=== PATIENT | male | born 1980 | race Caucasian/White ===

== ENCOUNTER 2017-07-06 05:57 | Day surgery (SDC) | payer OTHER ==
[2017-07-06] VITALS (13 sets, daily range): BP systolic 126–152; BP diastolic 73–96; PULSE 60–98; RESP 10–20; O2SAT 95–99
[~2017-07-06] VITALS: Ht 198.1 cm; Wt 151.2 kg
[~2017-07-06 05:57] MED LIST: Lactated Ringer's 1,000 ML IV ONE
[2017-07-06] MEDS ORDERED: Phenylephrine/NS 100 mCg/mL 10 mL Syringe IVPUSH ONE (05:58)
[2017-07-06] MEDS ORDERED: Propofol 10,000 mCg/mL 20 mL Inj ONE (05:58)
[2017-07-06] MEDS ORDERED: Ondansetron 2 mg/mL 2 mL Inj ONE (05:58)
[2017-07-06] MEDS ORDERED: Succinylcholine Chloride 20 mg/mL 5 mL Inj ONE (05:58)
[2017-07-06] MEDS ORDERED: fentaNYL-PF 50 mCg/mL 2 mL Inj ONE (05:58)
[2017-07-06] MEDS: Dexamethasone Inj 20 MG in Dextrose 5%-Pha MIX 50 ML IV SCH ×2 (06:50→06:55)
--- NOTE | 2017-07-06 07:19 | PCM.HPANE ---
Patient Data Date of Service: Jul 06, 2017 Surgeon Admitting Provider: Attending Provider:Marcos Yap MD Primary Care Physician:Logan Cowan MD Other Provider:Ela Huggins Anesthesia Reason for Visit Hypertrophy Of Nasal Turbinates, Chronic Sinisitis HYPERTROPHY OF NASAL TURBINATES, CHRONIC SINISITIS Ht/WT & BMI Height (Feet): 6 Height (Inches): 2 Weight (Kilograms): 152.00 Body Mass Index 43.00 Allergies Coded Allergies: hydrocodone (Verified Allergy, Unknown, nausea/vomiting, 06/29/17) Past Anesthesia History Anesthesia History: Denies:: Abnormal Airway, Anesthesia Reactions, Difficult Intubation, Fam Anesthesia Reaction (mother once woke during procedure) Diabetes History Hx Diabetes?: No Type of Diabetes: Diet Controlled MRSA MRSA: No Medications Home Meds Incl Beta Isidra: No No Active Prescriptions or Reported Meds History History of ENT Problems?: Yes HEENT History: Positive for:: Sinus Problem (current admission problem ) Denies:: Abnormal Airway Cataracts Difficult Intubation Dysphagia Glaucoma Hearing Problem TMJ Denture Type: None Teeth Condition: Within Normal Limits Hx of Heart Problems?: No Cardiovascular History: Denies:: Abdominal Aortic Aneurism Atrial Fibrillation Chest Pain Heart Murmur Hypertension Irregular Heartbeat Hx of Respiratory Problem?: Yes Respiratory History: Positive for:: Use of C-PAP Machine (uses nasal pillows- no mask ) Denies:: Asthma COPD Emphysema Oxygen Administration Pneumonia Tuberculosis Hx Neurologic Problems?: No Neurological History: Denies:: CVA Headaches Multiple Sclerosis Parkinson's Disease Seizures TIA Hx of GI Problems?: Yes Hx of Problems?: No Genitourinary History: Denies:: Kidney Stones Urinary Tract Infection Male Hx: Denies:: Prostate Problems Skin History: Denies:: History Skin Disorders? Pressure Ulcers Hx Musculoskeletal Problems?: No Musculoskeletal History: Denies:: Back Injury Fibromyalgia Joint Replacement Musculoskeletal Trauma Myasthenia Gravis Osteoarthritis Systemic Lupus Hx of Psycho/Social Problems?: No Psycho Social History: Denies:: Anxiety Hx Depression Hx Surgeries?: Yes (ORIF right ankle) Hx Any Other Health Problems?: Yes Other History: Denies:: Cancer Thyroid Disease History Blood Transfusions: Positive for:: Accept Blood Products? Denies:: Blood Transfusions Hx Diabetes: No Hx Alcohol Use: NoHx Substance Use: NoHave You Smoked inLast 12 mo: Yes (one pack per day ) Stop/Bang S-Snoring: Do You Snore Loudly: Yes T-Tired: feel tired, fatigued: No P-Blood Pressure: treated: No B- Body Mass Index > 35 kg/m2: Yes A- Age over 50: No N- Neck Large Circumference: Yes ALICIA Category 1: Yes Risk Assessment Category Category 1A: Patient has history of documented sleep apnea, and HAS NOT received any narcotic, sedative or anesthesia administration during this stay. Category 1B: Patient has history of documented sleep apnea, and HAS received any narcotic , sedative or anesthesia administration during this stay Category 2: Patient has SUSPECTED Obstructive Sleep Apnea, and HAS received any narcotic , sedative or anesthesia administration during this stay. Category 3: Patient has SUSPECTED Obstructive Sleep Apnea and HAS NOT received narcotic, sedative or anesthesia administration during this stay. Category 4: Outpatient in Procedural Areas with known sleep apnea or who screen positive for High Risk via the STOP/BANG questionnaire. Exam Exam Vital Signs Vital Signs Date Time Temp Pulse Resp B/P Pulse Ox O2 Delivery O2 Flow Rate FiO2 07/06/17 06:37 36.3 89 16 128/80 95 Room Air General Appearance: Alert, Oriented X3, Cooperative, No Acute Distress HEENT/AIRWAY: MP 2 Lungs: Clear to Auscultation, Normal Air Movement Heart: Exam Unremarkable, Regular Rate/Rhythm, No Murmurs/Rubs/Gallops Meds/Labs/Diagnostics Admission Meds Current Medications Lactated Ringer's (Lr) 1,000 ml @ 120 mls/hr Q8H20M ONCE IV Last administered on 07/06/17t 06:30; Start 07/06/17 at 05:00; Stop 07/06/17 at 13:19 Plan Impression Patient chart reviewed, patient interviewed and anesthestic plan with risks, benefits, and alternatives discussed, and informed consent obtained. NPO per Anesth. Guidelines: Yes ASA Physical Status: ASA3 Severe Disease Anesthetic Plan: GA Bene/Risks/Altern/Consents: Yes HP Complete Prior to Induction: Yes Yazan Renee MD Jul 06, 2017 07:19
[2017-07-06] MEDS ORDERED: Lactated Ringer's 500 ML IV PRN (07:55)
[2017-07-06] MEDS ORDERED: Dexamethasone 4 mg/mL Inj IVPUSH PRN (07:55)
[2017-07-06] MEDS ORDERED: fentaNYL-PF 50 mCg/mL 2 mL Inj IVPUSH PRN (07:55)
[2017-07-06] MEDS ORDERED: EPHEDrine Sulfate 50 mg/mL Inj IVPUSH PRN (07:55)
[2017-07-06] MEDS ORDERED: Phenylephrine 10,000 mCg/mL Inj IVPUSH PRN (07:55)
[2017-07-06] MEDS ORDERED: HYDROmorphone 1 mg/mL Inj IVPUSH PRN (07:55)
[2017-07-06] MEDS ORDERED: Ondansetron 2 mg/mL 2 mL Inj IVPUSH PRN (07:55)
[2017-07-06] MEDS ORDERED: Lactated Ringer's 1,000 ML IV SCH (07:55)
[2017-07-06] MEDS ORDERED: MetoCLOpramide 5 mg/mL 2 mL Inj IVPUSH PRN ×2 (07:55→11:15)
[2017-07-06] MEDS ORDERED: Lidocaine MPF 2%-Epi 1:200,000 10 mL Inj INFILTRATE ONE (07:56)
--- NOTE | 2017-07-06 08:42 | PCM.ANEP1 ---
Post Anesthesia PACU Phase 1 Assessment Date of Service: Jul 06, 2017 Vital Signs 36.6 169/103 99 15 93% FM Anesthetic Administered: GA Level of Alertness: Sleepy, easy to arouse ADAMS's with Equal Strength: Yes Pain: No Nausea or Vomiting: No CV Function & Hydration Stable: Yes Airway Device: Oxygen Delivery: Simple Mask Lungs: Clear to Auscultation, Normal Air Movement PACU Phase 2 Assessment Complications: No Follow up Care: N/A Patient Instructions Provided: N/A Yazan Renee MD Jul 06, 2017 08:42
--- NOTE | 2017-07-06 09:08 | OP ---
[address] [address] OPERATIVE REPORT PATIENT: [place] BELTRAN : 1980 MR#: [id number] ADMIT: 07/06/2017 JOB ID: [id number] DATE OF SURGERY: 07/06/2017 SURGEON: Marcos Yap MD PREOPERATIVE DIAGNOSIS(ES): Chronic sinusitis and nasal obstruction from turbinate hypertrophy. POSTOPERATIVE DIAGNOSIS(ES): Chronic sinusitis and nasal obstruction from turbinate hypertrophy. PROCEDURE: Bilateral maxillary and ethmoid sinusotomies and submucosal treatment of turbinates. HISTORY AND INDICATIONS: A 37-year-old gentleman with chronic and recurrent acute sinus problems, chronic nasal obstruction with turbinate hypertrophy interfering with his use of CPAP for sleep apnea. PROCEDURE AND OPERATIVE FINDINGS: The patient taken to the operative room, placed supine position on operating table. General endotracheal anesthesia induced. The nose inspected. The inferior turbinates were markedly hypertrophied. They are injected with 2% lidocaine 1:100,000 epinephrine. Afrin pledgets were then applied to the turbinates to shrink them down. Once they had been adequately reduced, the middle meatus was able to be visualized. The uncinate process and middle turbinate were injected with 2% lidocaine and 100,000 epinephrine. The middle meatus was then packed with half-inch in neuro patties saturated with 1:1000 epinephrine. After allowing adequate time for the topical and local effect the packing is removed. Beginning with a 0 degree scope and the ethmoid up-biter the uncinate process was taken down. On the right the microdebrider was used to further take down the uncinate. The ethmoidal bulla was entered. Findings of chronic thickening of the mucosa, no purulence is in counter. The anterior ethmoids were opened till the nasofrontal duct was visualized. The posterior ethmoids were entered and opened. The large maxillary antrostomy was created. There is some polypoid thickening in the floor of the antrum. Once all areas were adequately opened, a folded Merocel pack is placed in the middle meatus. The same procedure was carried out on the left with same findings. A stab incision was then made on the anterior tip of the inferior turbinates bilaterally with a Crook elevator. The turbinate bone was exposed. Portions were removed with a Wale. Further submucosal treatment is undertaken suction cautery. The patient is awakened and extubated in the operative room, returned to recovery room in good condition. ESTIMATED BLOOD LOSS: Less than 100 cc. PATHOLOGIC SPECIMENS: None. DRAINS: None. COMPLICATIONS: None.
[2017-07-06] MEDS ORDERED: HYDROmorphone 0.5 mg/0.5 mL iSecure Syringe ONE (09:46)
--- NOTE | 2017-07-06 11:00 | NUR ---
Post OP Pt arrived to OSC unit, 1006, from PACU via gurney at 1030. Transferred over to [facility] Foam bed. A&Ox3 - groggy but answering appropriately when prompted, VSS - on 2L oxymask with CPOx in place (sats 95-97%). Pt with ALICIA and CPAP usage - staying overnight d/t having nasal pillows rather than mask for CPAP - unable to use CPAP - desats to 88% on RA while sleeping per [employer] QUAL[facility] ASSURANCE SPECIALIST report. Pt with mustache dressing of gauze and tape in place - CDI. IV SL. Pt back to sleep. Personal belongings brought down after pt arrival. Call light in reach. Care continues.
[2017-07-06] MEDS ORDERED: Influenza (Adult) Vaccine 0.5 mL Syringe IM ONE (12:10)
[2017-07-07 00:08] VITALS: BP 119/74; PULSE 64; RESP 18; O2SAT 97
[2017-07-07 04:50] VITALS: BP 131/76; PULSE 72; RESP 18; O2SAT 95
--- NOTE | 2017-07-07 05:06 | NUR ---
CPAP Patient alert and oriented x4, denies pain all shift. Ambulated around the hallway several times during the shift. All vital signs remained stable. When pt dosed after SPo2 dropped to 85-88% on RA, he was placed on 2L O2 when asleep and SPO2 remained >94%. Pt uses CPAP at home but unable to use it post surgery since it uses nasal pillow. Pt tolerated O2 via Oxi-mask well. He slept most of the shift and had SPO2 monitor on all shift. Denies any nose bleed or discomfort. Addendum: 07/07/17 at 0742 by DAMION RHOADES RN Pt asked regarding receiving prednisone that he "was tapering down" and nasal saline spray that he was told to use post op. attempted to call MD with no success, MD paged but no response regarding questions. dayshift notified to follow up and patient reminded to follow up with MD regarding those questions. Patient appears to have received steroids before surgery on EMAR.
[2017-07-07 09:24] VITALS: BP 142/73; PULSE 91; RESP 20; O2SAT 97
--- NOTE | 2017-07-07 11:44 | NUR ---
DC Pt DCs home with . No new medication changes. Pain controlled with APAP. All discharge instructions reviewed with pt and at bedside. All belongings in hand. Per pt he understands all instructions. Ambulates with steady gait to car with at side. Care discontinues
== END 2017-07-07 11:40 | disposition home or self-care (01) ==
LOC: SAS 05:57 → OSC 10:49 → UNDOADMIN 10:49 → OSC 10:49 → SAS 07-07 11:40
PROVIDERS: ATTEND Otolaryngology Facial Plastic Surgery
DX: J34.3 Hypertrophy of nasal turbinates (principal); J32.0 Chronic maxillary sinusitis; J32.2 Chronic ethmoidal sinusitis; J34.89 Other specified disorders of nose and nasal sinuses; E10.9 Type 1 diabetes mellitus without complications; G47.33 Obstructive sleep apnea (adult) (pediatric); F17.210 Nicotine dependence, cigarettes, uncomplicated; Z23 Encounter for immunization
CPT/HCPCS: 30140; 31255; 31256; 90471; 90674; J0171; J0330; J1100; J1170; J2370; J2405; J2704; J3010; J7120